=== PATIENT | male | born 1995 | race Caucasian/White ===

== ENCOUNTER → 2018-02-07 | Outpatient (CLI) | payer OTHER ==
[~2018-02-07] MED LIST: BACTRIM DS TAB1 EACH PO; CIPRO500 MG; CLARITIN10 M1 PO; FLAGYL500MG; LAMICTAL100 MG PO; PERCOCET 5-3251 EACH PO
== END | disposition home or self-care (01) ==
LOC: PPHC 08:53
DX: J06.9 Acute upper respiratory infection, unspecified (principal)